=== PATIENT | female | born 1955 | race Two or more races ===

== ENCOUNTER 2021-10-03 17:43 | Emergency (ER) | payer OTHER ==
[~2021-10-03 17:43] MED LIST: ONDANSETRON ODT4 MG SL
[2021-10-03 18:20] LABS: BASOPHIL 0.3 % (0-2); EOSINOPHIL 15.9 % (0-7); HCT 36.8 % (37.0-47.0); HGB 12.8 g/dl (12.5-16.0); LYMPHOCYTE 23.6 % (15-48); MCH 34.8 pg (25.0-31.0); MCHC 34.8 g/dL (32.0-36.0); MONOCYTE 6.9 % (0-12); MPV 11.3 fL (6.0-9.5); NRBC 0; PLT 148 K/uL (150-400); RBC 3.68 M/uL (4.20-5.40); RDW 13.6 % (11.5-14.0); WBC 3.5 K/uL (4.0-10.5)
[2021-10-03 18:35] LABS: ALBUMIN 4.3 g/dL (3.4-5.0); BILIRUBIN - TOTAL 1.1 mg/dL (0.2-1.0); BUN/CREAT RATIO (CALC) 12.2 RATIO; CREATININE 0.74 mg/dL (0.51-0.95); GLOBULIN (CALCULATION) 4.4 g/dL; TOTAL PROTEIN 8.7 g/dL (6.4-8.2)
[2021-10-03 18:36] LABS: LACTIC ACID 1.1 mmol/L (0.4-1.9)
[2021-10-03 19:47] LABS: BILIRUBIN NEGATIVE (NEGATIVE); BLOOD TRACE-INTACT Ery/uL (NEGATIVE); GLUCOSE (U) NORMAL (NORMAL); LEUKOCYTES 1+ Leu/uL (NEGATIVE); NITRITE NEGATIVE (NEGATIVE); PROTEIN NEGATIVE (NEGATIVE); SPECIFIC GRAVITY <=1.005 (1.001-1.030); UROBILINOGEN 0.2 mg/dL (0.2-1.0)
[2021-10-03 19:48] LABS: CLARITY SLIGHTLY HAZY (CLEAR); COLOR STRAW (YELLOW)
[2021-10-03 19:58] LABS: BACTERIA TRACE
[2021-10-03 19:59] LABS: TRANSITIONAL EPITHELIAL CELLS RARE
[2021-10-03] MEDS ORDERED: MIRALAX 238GM238 GM PO (20:41)
[2021-10-03] MEDS ORDERED: SENNA S TABLET1 EACH PO (20:41)
== END 2021-10-03 22:44 | disposition home or self-care (01) ==
LOC: FER 17:43
PROVIDERS: Emergency Medicine
DX: K59.00 Constipation, unspecified (principal); K74.60 Unspecified cirrhosis of liver; I10 Essential (primary) hypertension; E11.9 Type 2 diabetes mellitus without complications
CPT/HCPCS: 36415; 80053; 81001; 83605; 83690; 84145; 84484; 85025; 93005; Q9967